=== PATIENT | female | born 1970 ===

== ENCOUNTER 2017-06-22 17:50 | Emergency (ER) | payer OTHER ==
[2017-06-22 17:58] VITALS: PULSE 64; RESP 20; TEMP 98.1; O2SAT 99; BMI 30.4
--- NOTE | 2017-06-22 18:12 | C.PDOC ---
History Of Present Illness 46 year old female presents to the ED with complaints of right ear pain for five days. Patient states when she cleaned her ear with a Q-tip she noticed blood on it and began to use left over antibiotic drops for her ear. She notes muffled hearing in her right ear and denies fever or discharge. Time Seen by Provider: 06/22/17 18:00 Chief Complaint (Nursing): ENT Problem History Per: Patient History/Exam Limitations: None Onset/Duration Of Symptoms: Days (5 days ) Current Symptoms Are (Timing): Still Present Quality (Ear): Pain W/Touch (and muffled hearing in the right ear). denies: Swelling, Discharge Symptoms Have Been: Continuous Anticoagulant/Antiplatlet Use?: No Recent Aspirin Use: No Past Medical History Reviewed: Historical Data, Nursing Documentation, Vital Signs Vital Signs: Last Vital Signs Temp 98.1 F 06/22/17 17:58 Pulse 64 06/22/17 17:58 Resp 20 06/22/17 17:58 BP 132/75 06/22/17 18:15 Pulse Ox 99 06/22/17 19:59 Family History: States: Unknown Family Hx - Social History Hx Alcohol Use: Yes Hx Substance Use: No - Immunization History Hx Tetanus Toxoid Vaccination: Yes Hx Influenza Vaccination: Yes Hx Pneumococcal Vaccination: Yes Review Of Systems Constitutional: Negative for: Fever, Chills ENT: Positive for: Ear Pain. Negative for: Ear Discharge Cardiovascular: Negative for: Chest Pain Respiratory: Negative for: Shortness of Breath Neurological: Negative for: Headache Physical Exam - Physical Exam Appears: Non-toxic, No Acute Distress Skin: Warm, Dry Head: Atraumatic, Normacephalic Eye(s): bilateral: Normal Inspection, PERRL, EOMI Ear(s): Left: Normal, Right: TM Erythema, Other (edematous ear canal with exudates) Nose: Normal, No Discharge Oral Mucosa: Moist Throat: Normal, No Erythema, No Exudate Neck: Supple Chest: Symmetrical, No Deformity Cardiovascular: Rhythm Regular Respiratory: Normal Breath Sounds, No Rales, No Rhonchi, No Wheezing Neurological/Psych: Oriented x3, Normal Speech Gait: Steady ED Course And Treatment O2 Sat by Pulse Oximetry: 99 (room air ) Medical Decision Making Medical Decision Making: Patient with right ear pain and has been using tobrex drops for few days. Exam shows erythematous and edematous ear canal with exudates. Advise patient to take analgesics and to continue with ear drops and follow up with ENT Disposition Counseled Patient/Family Regarding: Diagnosis, Need For Followup - Disposition Referrals: Clinic,Med Surg [Primary Care Provider] - Kishan Mackey MD [Staff Provider] - Disposition: HOME/ ROUTINE Disposition Time: 18:10 Condition: STABLE Additional Instructions: Por favor, siga en la clnica y el mdico otorrinolaringlogo para la evaluaci n posterior Contine usando gotas para los odos Instructions: Otitis Externa (ED) Forms: [employer] (Slovak) Print Language: BURMESE - POA Present On Arrival: None - Clinical Impression Clinical Impression: Otitis externa - PA / [facility] / Resident Statement MD/DO has reviewed & agrees with the documentation as recorded. - Scribe Statement The provider has reviewed the documentation as recorded by the Scribe Ariana Newberry All medical record entries made by the Scribe were at my direction and personally dictated by me. I have reviewed the chart and agree that the record accurately reflects my personal performance of the history, physical exam, medical decision making, and the department course for this patient. I have also personally directed, reviewed, and agree with the discharge instructions and disposition.
[2017-06-22 18:20] VITALS: BP 132/75
== END 2017-06-22 18:20 | disposition home or self-care (01) ==
LOC: SUPCPDRO 17:50 → C.ER 17:50
DX: H60.91 Unspecified otitis externa, right ear (principal)